=== PATIENT | female | born 1995 | race Caucasian/White ===

== ENCOUNTER 2016-11-04 17:49 | Emergency (ER) | payer MEDICAID ==
[~2016-11-04] VITALS: Ht 157.5 cm; Wt 78.5 kg
[2016-11-04 18:05] VITALS: BP 102/42; PULSE 54; RESP 16; TEMP 97; O2SAT 99
--- NOTE | 2016-11-04 18:11 | NUR ---
Patient to ER bed 4 to gown for evaluation. Side rails up. Report given to NONA MANRIQUE.
--- NOTE | 2016-11-04 18:15 | NUR ---
Patient in stable condition, alert and oriented x4. States has been having lower abdomen/pelvic pain along with lower back pain since yesterday. States vomited 1x 30mins prior to arrival. Denies nausea/vomiting at this time. Abdomen soft and non distended. No other complaints/injuries per patient or noted. Addendum: 11/04/16 at 1834 by SALEEM + diarrhea since yesterday
--- NOTE | 2016-11-04 18:20 | NUR ---
ER Dr. Frias at bedside examining patient.
[2016-11-04] MEDS ORDERED: NACL 0.9% 1,000 ML IV ONE (18:21)
[2016-11-04] MEDS ORDERED: ONDANSETRON HCL 4 MG/2 ML VIAL IVP ONE (18:30)
[2016-11-04] MEDS ORDERED: KETOROLAC TROMETHAMINE 30 MG VIAL IVP ONE (18:30)
[2016-11-04 18:40] LABS: BILIRUBIN,URINE NEGATIVE (NEGATIVE); BLOOD, URINE 1+ (NEGATIVE); CLARITY/URINE SL CLOUDY (CLEAR); COLOR,URINE YELLOW (YELLOW); GLUCOSE,URINE NEGATIVE (NEGATIVE); KETONES,URINE NEGATIVE (NEGATIVE); LEUKOCYTE ESTERASE ,URINE NEGATIVE (NEGATIVE); NITRITE, URINE NEGATIVE (NEGATIVE); PH,URINE >=9.0 (5.0-8.0); PROTEIN URINE 1+ (NEGATIVE); UROBILINOGEN,URINE 0.2 (0.2-1.0)
[2016-11-04 18:42] LABS: BASOPHILS # (AUTO) 0.1 K/uL (0.0-0.2); BASOPHILS % (AUTO) 0.4 % (0.0-2.0); EOSINOPHILS % (AUTO) 0.3 % (0.0-4.0); HEMOGLOBIN 12.9 g/dL (12.0-16.0); LYMPHOCYTES # (AUTO) 1.7 K/uL (1.0-5.5); LYMPHOCYTES % (AUTO) 11.7 % (20.5-51.5); MEAN CORPUSCULAR HEMOGLOBIN 25 pg (27-31); MEAN CORPUSCULAR HGB CONC 34 % (32-36); MEAN CORPUSCULAR VOLUME 73 fL (79.0-98.0); MONOCYTES # (AUTO) 0.3 K/uL (0.0-1.0); MONOCYTES % (AUTO) 2.2 % (1.7-9.3); NEUTROPHILS # (AUTO) 12.1 K/uL (1.8-7.7); NEUTROPHILS % (AUTO) 85.4 % (40.0-70.0); PLATELET COUNT (AUTO) 355 K/uL (130-430); RED BLOOD CELL COUNT(AUTO) 5.22 MIL/uL (4.2-6.2); RED CELL DISTRIBUTION WIDTH 13.7 % (9.0-15.0); WHITE BLOOD COUNT (AUTO) 14.2 K/uL (4.8-10.8)
[2016-11-04 18:46] LABS: CALCIUM 9.4 mg/dL (8.4-11.0); CREATININE 0.71 mg/dL (0.55-1.30); POTASSIUM 3.8 mmol/L (3.5-5.1)
[2016-11-04 18:48] LABS: BACTERIA,URINE FEW /HPF (None Seen); WBC,URINE 0-3 /HPF (0-3)
[2016-11-04 18:49] LABS: MUCUS,URINE None Seen /LPF (None Seen); URINE AMORPHOUS PHOSPHATES 3+ /HPF (None Seen)
[2016-11-04 18:51] LABS: ALBUMIN 4.4 g/dL (3.4-4.8); TOTAL BILIRUBIN 0.4 mg/dL (0.0-1.0); TOTAL PROTEIN, SERUM 8.1 g/dL (6.4-8.3)
--- NOTE | 2016-11-04 19:19 | NUR ---
pt in bed, stated she feels comfortable, pain is tolerable at 4/10
--- NOTE | 2016-11-04 19:45 | NUR ---
MD thayer at bedside evaluating pt
[2016-11-04 20:35] VITALS: BP 107/52; PULSE 62; RESP 18; TEMP 97; O2SAT 99
--- NOTE | 2016-11-04 20:35 | NUR ---
Patient given written and verbal discharge instructions and verbalizes understanding. ER MD thayer discussed with patient the results and treatment provided. Patient in stable condition. ID arm band removed.IV catheter removed, intact, no active bleeding. Rx of motrin, flomax, norco given. Patient educated on pain management and to follow up with PMD. Pain Scale /10 Opportunity for questions provided and answered.
== END 2016-11-04 20:35 | disposition home or self-care (01) ==
LOC: SED 17:49
DX: N20.0 Calculus of kidney (principal); F17.200 Nicotine dependence, unspecified, uncomplicated
CPT/HCPCS: 36415; 74176; 80053; 81000; 81025; 85025; 96361; 96374; 96375; 99285; J1885; J2405; J7030